=== PATIENT | female | born 1980 | race Caucasian/White ===

== ENCOUNTER 2017-11-04 05:25 | Inpatient (IN) | payer OTHER ==
[~2017-11-04] VITALS: Ht 170.2 cm; Wt 125.9 kg
[2017-11-04 06:31] LABS: BASOPHIL % 0.5 % (0-2); PLATELET COUNT 274 x10^3mcL (130-400)
[2017-11-04 06:33] LABS: CALCIUM 8.6 mg/dL (8.5-10.1); CARBON DIOXIDE 21.7 mmol/L (21-32); CHLORIDE SERUM 104 mmol/L (98-107); CREATININE SERUM 0.8 mg/dL (0.6-1.0); GFR1 > 60 mL/min; GLUCOSE SERUM 119 mg/dL (74-106); MAGNESIUM 1.9 mg/dL (1.8-2.4); POTASSIUM SERUM 3.4 mmol/L (3.5-5.1); SODIUM SERUM 138 mmol/L (136-145)
[2017-11-04 06:46] LABS: CK-MB 0.7 ng/mL (0-3.6)
[2017-11-04 11:01] LABS: microscopic required? NO
[2017-11-04 11:10] LABS: T3 TOTAL 0.91 ng/mL
[2017-11-04 11:31] VITALS: BP 104/52
[2017-11-04 11:34] VITALS: BP 124/55
[2017-11-04 11:34] LABS: UA SPECIFIC GRAVITY <=1.005 (1.005-1.035); urine erythrocyte NEGATIVE (NEGATIVE)
[2017-11-04 11:43] LABS: AMPHETAMINE QUAL UR NONE DETECTED (NEG <=1000)
[2017-11-04 12:11] LABS: FREE T4 1.01 ng/dL (0.76-1.46); FREE THYROXINE INDEX 2.2 ug/dL (1.4-4.5); T4(THYROXINE) 6.6 ug/dL (4.7-13.3)
[2017-11-04 14:55] VITALS: BP 114/50
[2017-11-04 16:59] VITALS: BP 113/63
[2017-11-04 18:27] VITALS: Ht 170.2 cm; Wt 125.9 kg
[2017-11-04 19:19] VITALS: BP 110/59
[2017-11-05 05:25] VITALS: BP 102/53
[2017-11-05 07:02] LABS: PLATELET COUNT 303 x10^3mcL (130-400)
[2017-11-05 07:03] LABS: CALCIUM 8.4 mg/dL (8.5-10.1); CARBON DIOXIDE 21.5 mmol/L (21-32); CHLORIDE SERUM 108 mmol/L (98-107); CREATININE SERUM 0.7 mg/dL (0.6-1.0); GFR1 > 60 mL/min; GLUCOSE SERUM 172 mg/dL (74-106); POTASSIUM SERUM 4.4 mmol/L (3.5-5.1); SODIUM SERUM 140 mmol/L (136-145)
[2017-11-05 07:07] LABS: BASOPHIL % 0 % (0-2); RED CELL DISTRIBUTION WIDTH 15.9 % (11.5-14.5)
[2017-11-05 09:50] VITALS: BP 108/60
[2017-11-05 13:10] VITALS: BP 110/61
[2017-11-05 17:00] VITALS: BP 134/53
[2017-11-05 20:45] VITALS: BP 116/51
[2017-11-06 05:58] VITALS: BP 115/57
[2017-11-06 07:32] LABS: PLATELET COUNT 279 x10^3mcL (130-400)
[2017-11-06 07:34] LABS: RED CELL DISTRIBUTION WIDTH 15.4 % (11.5-14.5)
[2017-11-06 08:29] LABS: CALCIUM 8.3 mg/dL (8.5-10.1); CARBON DIOXIDE 21.4 mmol/L (21-32); CHLORIDE SERUM 107 mmol/L (98-107); CREATININE SERUM 0.7 mg/dL (0.6-1.0); GFR1 > 60 mL/min; GLUCOSE SERUM 194 mg/dL (74-106); POTASSIUM SERUM 4.2 mmol/L (3.5-5.1); SODIUM SERUM 140 mmol/L (136-145)
[2017-11-06 10:35] VITALS: BP 110/60
[2017-11-06 11:28] LABS: BAND NEUTROPHIL 4 % (0-10); BASOPHIL 0 % (0-2); MONOCYTE 3 % (0-7); SEGMENTED NEUTROPHILS 83 % (37-75)
[2017-11-06 11:29] LABS: PLATELET MORPHOLOGY PLATELETS NORMAL; rbc morphology (normal/abnorm) ABNORMAL (NORMAL)
[2017-11-06 13:26] VITALS: BP 121/58
[2017-11-06 18:16] VITALS: BP 109/55
[2017-11-06 22:01] VITALS: BP 106/57
[2017-11-07 04:50] VITALS: BP 104/58
[2017-11-07 06:44] LABS: BASOPHIL % 0.2 % (0-2); PLATELET COUNT 251 x10^3mcL (130-400)
[2017-11-07 06:45] LABS: RED CELL DISTRIBUTION WIDTH 15.3 % (11.5-14.5)
[2017-11-07 06:53] LABS: CALCIUM 7.9 mg/dL (8.5-10.1); CARBON DIOXIDE 24.9 mmol/L (21-32); CHLORIDE SERUM 108 mmol/L (98-107); CREATININE SERUM 0.9 mg/dL (0.6-1.0); GFR1 > 60 mL/min; GLUCOSE SERUM 132 mg/dL (74-106); POTASSIUM SERUM 3.2 mmol/L (3.5-5.1); SODIUM SERUM 142 mmol/L (136-145)
[2017-11-07 10:11] VITALS: BP 102/50
[2017-11-07 12:55] VITALS: BP 112/61
[2017-11-07 17:16] VITALS: BP 93/57
[2017-11-08 05:48] LABS: BASOPHIL % 0.5 % (0-2); PLATELET COUNT 257 x10^3mcL (130-400)
[2017-11-08 06:01] VITALS: BP 105/58
[2017-11-08 06:03] LABS: CALCIUM 7.8 mg/dL (8.5-10.1); CARBON DIOXIDE 28.8 mmol/L (21-32); CHLORIDE SERUM 107 mmol/L (98-107); CREATININE SERUM 0.9 mg/dL (0.6-1.0); GFR1 > 60 mL/min; GLUCOSE SERUM 83 mg/dL (74-106); POTASSIUM SERUM 4.2 mmol/L (3.5-5.1); SODIUM SERUM 140 mmol/L (136-145)
[2017-11-08 06:55] LABS: RED CELL DISTRIBUTION WIDTH 15.5 % (11.5-14.5)
[2017-11-08 08:00] VITALS: BP 97/54
[2017-11-08 08:37] VITALS: BP 114/44
[2017-11-08 09:01] VITALS: BP 114/44
[2017-11-08 09:41] VITALS: BP 114/44
[2017-11-08] MEDS ORDERED: LEV500 PO (11:07)
[2017-11-08] MEDS ORDERED: VENTOLIN H0.09 MG/A1 INH (11:33)
[2017-11-08] MEDS ORDERED: SYMBICORT1 AE2 INH (11:34)
[2017-11-08] MEDS ORDERED: LAC PO (11:35)
== END 2017-11-08 12:15 | disposition home or self-care (01) | DRG 137 ==
LOC: ED 05:25 → DU 09:16 → MU 11-07 10:15
PROVIDERS: Emergency Medicine; Family Medicine
DX: J69.0 Pneumonitis due to inhalation of food and vomit (principal); N17.0 Acute kidney failure with tubular necrosis; J96.01 Acute respiratory failure with hypoxia; E87.2 Acidosis; E87.8 Other disorders of electrolyte and fluid balance, not elsewhere classified; Z68.42 Body mass index [BMI] 45.0-49.9, adult; E66.01 Morbid (severe) obesity due to excess calories; E87.6 Hypokalemia; R73.03 Prediabetes; J45.909 Unspecified asthma, uncomplicated; F17.210 Nicotine dependence, cigarettes, uncomplicated; D64.9 Anemia, unspecified; Z53.29 Procedure and treatment not carried out because of patient's decision for other reasons; J10.08 Influenza due to other identified influenza virus with other specified pneumonia; J15.9 Unspecified bacterial pneumonia; D72.828 Other elevated white blood cell count; T38.0X5A Adverse effect of glucocorticoids and synthetic analogues, initial encounter; Y92.89 Other specified places as the place of occurrence of the external cause
CPT/HCPCS: 83880; 84439; 87804; 94150; J0132; J1100; J1885; J1940; J1956; J2543; J2920; J2930; J3490; J7030; J7613; J7620; J7626; J7644; Q0092